=== PATIENT | male | born 1990 | race Two or more races ===

== ENCOUNTER 2021-01-13 19:22 | Emergency (ER) | payer BC, OTHER ==
[~2021-01-13] VITALS: Ht 185.4 cm; Wt 106.0 kg
[2021-01-13 19:35] VITALS: BP 137/75
== END 2021-01-13 20:28 | disposition home or self-care (01) ==
LOC: ER 19:23
DX: L03.116 Cellulitis of left lower limb (principal); T36.8X5A Adverse effect of other systemic antibiotics, initial encounter; Z88.1 Allergy status to other antibiotic agents; Y92.89 Other specified places as the place of occurrence of the external cause
CPT/HCPCS: 99283

== ENCOUNTER 2021-01-15 13:14 | Emergency (ER) | payer BC ==
[~2021-01-15] VITALS: Ht 185.4 cm; Wt 104.0 kg
[2021-01-15 13:19] VITALS: BP 137/80
== END 2021-01-15 16:06 | disposition home or self-care (01) ==
LOC: ER 13:15
DX: N49.2 Inflammatory disorders of scrotum (principal); E03.9 Hypothyroidism, unspecified; Z98.890 Other specified postprocedural states; Z88.1 Allergy status to other antibiotic agents
CPT/HCPCS: 99281

== ENCOUNTER → 2021-04-05 | Emergency (ER) | payer BC ==
[~2021-04-05] VITALS: Ht 188 cm; Wt 108.6 kg
[2021-04-05 14:54] VITALS: BP 139/78
== END | disposition home or self-care (01) ==
LOC: ER 17:49
DX: L02.415 Cutaneous abscess of right lower limb (principal); L73.2 Hidradenitis suppurativa; K62.89 Other specified diseases of anus and rectum; E03.9 Hypothyroidism, unspecified; Z98.890 Other specified postprocedural states; Z88.1 Allergy status to other antibiotic agents
CPT/HCPCS: 99281